=== PATIENT | male | born 1950 | race Two or more races ===

== ENCOUNTER → 2021-09-19 | Outpatient (CLI) | payer OTHER ==
[~2021-09-19] MED LIST: IOHEXOL 350 MG/ML 100ML IJ ONE; METOPROLOL TARTRATE 1MG/1ML-5ML VIAL IV ONE; NITROGLYCERIN 0.4 MG SL TAB SL ONE
[2021-09-19 10:00] LABS: BUN/Creatinine Ratio 13.5; Potassium 4.6 mmol/L (3.5-5.1)
== END | disposition home or self-care (01) ==
LOC: CT 08:31
PROVIDERS: ATTEND Specialist
DX: Z13.6 Encounter for screening for cardiovascular disorders (principal); J43.2 Centrilobular emphysema; J98.11 Atelectasis; K44.9 Diaphragmatic hernia without obstruction or gangrene; I70.8 Atherosclerosis of other arteries
CPT/HCPCS: 36415; 75571; 75574; 80048; Q9967

== ENCOUNTER 2021-11-08 06:41 | Day surgery (SDC) | payer OTHER ==
[~2021-11-08] VITALS: Ht 177.8 cm; Wt 71.7 kg
[2021-11-08] VITALS (10 sets, daily range): BP systolic 105–134; BP diastolic 49–83
[2021-11-08] MEDS ORDERED: IODIXANOL 320MG/ML 100ML BTL IV ONE (07:24)
[2021-11-08] MEDS ORDERED: fentaNYL CITRATE 100 MCG/2 ML VL ONE (07:55)
[2021-11-08] MEDS ORDERED: VERAPAMIL 2.5MG/ML INJ 2ML VIAL IV ONE (07:55)
[2021-11-08] MEDS ORDERED: ANGIOMAX 250 MG VIAL IV ONE (07:55)
[2021-11-08] MEDS ORDERED: HEPARIN SODIUM (PORCINE) 5000 UNITS/ML 1ML VIAL ONE (07:55)
[2021-11-08] MEDS ORDERED: MIDAZOLAM HCL 2MG/2ML 2ml VIAL (1mg/ml) ONE (07:56)
[2021-11-08] MEDS ORDERED: SODIUM CHL 0.9% 50 ML ONE (07:56)
[2021-11-08] MEDS ORDERED: LIDOCAINE 2%HCL (LOCAL ANESTH.) INJ 20ML MDV ONE (07:57)
[2021-11-08] MEDS ORDERED: TICAGRELOR 90 MG TAB ONE (08:37)
[2021-11-08] MEDS ORDERED: ASPirin 325 MG TAB ONE (08:38)
== END 2021-11-08 13:40 | disposition home or self-care (01) ==
LOC: CATH 06:41
PROVIDERS: ATTEND Internal Medicine Cardiovascular Disease
DX: R79.89 Other specified abnormal findings of blood chemistry (principal); I25.10 Atherosclerotic heart disease of native coronary artery without angina pectoris; N18.9 Chronic kidney disease, unspecified; E03.9 Hypothyroidism, unspecified; I25.2 Old myocardial infarction; E78.5 Hyperlipidemia, unspecified; J44.9 Chronic obstructive pulmonary disease, unspecified; Z82.49 Family history of ischemic heart disease and other diseases of the circulatory system; Z79.82 Long term (current) use of aspirin; Z79.02 Long term (current) use of antithrombotics/antiplatelets; Z87.891 Personal history of nicotine dependence; Z83.438 Family history of other disorder of lipoprotein metabolism and other lipidemia; Z20.822 Contact with and (suspected) exposure to COVID-19
CPT/HCPCS: 93458; C1725; C1769; C1874; C1887; C1894; C9600; J0583; J1644; J2250; J3010; J7030; Q9967; U0003; 99152